=== PATIENT | male | born 1980 | race Caucasian/White ===

== ENCOUNTER 2016-12-18 20:28 | Inpatient (IN) | payer MEDICAID ==
[~2016-12-18] VITALS: Ht 182.9 cm; Wt 108.9 kg
[2016-12-18] MEDS ORDERED: SODIUM CHLORIDE 0.9% 1,000ML IVBOLUS ONE (21:00)
[2016-12-18] MEDS ORDERED: SODIUM CHLORIDE FLUSH 10ML SYR IVF ONE (21:00)
[2016-12-18] MEDS ORDERED: ONDANSETRON 2MG/ML, 2ML IVPush ONE (21:00)
[2016-12-18] MEDS ORDERED: MORPHINE SULFATE 4 MG/ML, 1ML IVPush PRN (21:00)
[2016-12-18] MEDS ORDERED: MORPHINE SULFATE 4 MG/ML, 1ML ONE (21:09)
[2016-12-18] MEDS ORDERED: ONDANSETRON 2MG/ML, 2ML ONE (21:09)
[2016-12-18] MEDS ORDERED: KETAMINE 10 MG/ML, 20ML IV ONE (21:30)
[2016-12-18] MEDS ORDERED: LORazepam 2 MG/ML, 1ML IVPush PRN (21:30)
[2016-12-18] MEDS ORDERED: KETAMINE 10 MG/ML, 20ML ONE ×2 (21:40→22:09)
[2016-12-18] MEDS ORDERED: OMNIPAQUE 350 MG/ML, 75ML BOTTLE ONE (21:46)
[2016-12-18 21:53] LABS: BLOOD UREA NITROGEN 7 mg/dL (7-18)
[2016-12-18] MEDS ORDERED: LIDOCAINE 1%, 20ML ONE (22:01)
[2016-12-18] MEDS ORDERED: LORazepam 2 MG/ML, 1ML ONE (22:36)
[2016-12-18] MEDS ORDERED: FENTANYL PF 100 MCG/2ML ONE (22:56)
[2016-12-18] MEDS ORDERED: hydrALAzine 20 MG/ML, 1ML IVPush PRN (23:30)
[2016-12-18] MEDS ORDERED: FENTANYL PF 100 MCG/2ML IV PRN (23:30)
[2016-12-18] MEDS ORDERED: ONDANSETRON ODT 4 MG PO PRN (23:30)
[2016-12-18] MEDS: ACETAMINOPHEN 500 MG TABLET PO SCH (23:30)
[2016-12-19] VITALS: BP 130/84
[2016-12-19] MEDS: OXYcodone IR 5MG TABLET PO PRN ×3 (00:43→20:37)
[2016-12-19] MEDS: KETOROLAC 30 MG/1 ML IVPush PRN ×4 (01:59→23:20)
[2016-12-19] MEDS: ENOXAPARIN 30 MG/0.3 ML SQ SCH ×3 (02:02→23:20)
[2016-12-19] MEDS: D5%-0.45NACL+KCL 20MEQ 1,000 ML IV SCH ×3 (02:08→23:20)
[2016-12-19] MEDS: ACETAMINOPHEN 500 MG TABLET PO SCH ×4 (05:30→23:27)
[2016-12-19 05:40] VITALS: BP 137/84
[2016-12-19 05:56] LABS: BLOOD UREA NITROGEN 7 mg/dL (7-18)
[2016-12-19 06:57] VITALS: BP 126/81
[2016-12-19 14:36] VITALS: BP 126/83
[2016-12-19 19:12] VITALS: BP 135/75
[2016-12-20 01:03] VITALS: BP 130/78
[2016-12-20] MEDS: ACETAMINOPHEN 500 MG TABLET PO SCH ×4 (05:30→23:21)
[2016-12-20] MEDS: KETOROLAC 30 MG/1 ML IVPush PRN ×3 (05:57→17:35)
[2016-12-20 06:48] VITALS: BP 137/81
[2016-12-20] MEDS: OXYcodone IR 5MG TABLET PO PRN ×2 (08:51→23:22)
[2016-12-20] MEDS: D5%-0.45NACL+KCL 20MEQ 1,000 ML IV SCH ×2 (09:29→21:41)
[2016-12-20] MEDS ORDERED: ACETAMINOPHEN 325 MG TABLET ONE (11:45)
[2016-12-20] MEDS: ENOXAPARIN 30 MG/0.3 ML SQ SCH ×2 (11:51→23:22)
[2016-12-20 12:09] VITALS: BP 133/84
[2016-12-20 19:11] VITALS: BP 127/79
[2016-12-21 01:34] VITALS: BP 126/79
[2016-12-21] MEDS: ACETAMINOPHEN 500 MG TABLET PO SCH ×4 (05:39→22:54)
[2016-12-21] MEDS: KETOROLAC 30 MG/1 ML IVPush PRN (06:19)
[2016-12-21] MEDS: D5%-0.45NACL+KCL 20MEQ 1,000 ML IV SCH ×2 (06:19→18:40)
[2016-12-21 08:15] VITALS: BP 138/76
[2016-12-21] MEDS: ENOXAPARIN 30 MG/0.3 ML SQ SCH ×2 (12:09→22:54)
[2016-12-21 14:00] VITALS: BP 142/76
[2016-12-21 20:51] VITALS: BP 121/69
[2016-12-22 00:26] VITALS: BP 137/79
[2016-12-22] MEDS: D5%-0.45NACL+KCL 20MEQ 1,000 ML IV SCH ×2 (04:01→17:34)
[2016-12-22] MEDS: ACETAMINOPHEN 500 MG TABLET PO SCH ×4 (05:17→23:40)
[2016-12-22 06:31] VITALS: BP 132/74
[2016-12-22] MEDS: ENOXAPARIN 30 MG/0.3 ML SQ SCH ×2 (11:20→23:40)
[2016-12-22 13:24] VITALS: BP 142/88
[2016-12-22 20:00] VITALS: BP 123/68
[2016-12-23 03:54] VITALS: BP 128/80
[2016-12-23] MEDS: D5%-0.45NACL+KCL 20MEQ 1,000 ML IV SCH (04:16)
[2016-12-23] MEDS: ACETAMINOPHEN 500 MG TABLET PO SCH ×2 (05:36→12:24)
[2016-12-23 07:44] VITALS: BP 137/77
[2016-12-23] MEDS: ENOXAPARIN 30 MG/0.3 ML SQ SCH (11:30)
== END 2016-12-23 15:11 | disposition home or self-care (01) | DRG 200 ==
LOC: ED 22:46 → EDIP 23:23 → 4WST 23:41
PROVIDERS: ADMIT Surgery; ATTEND Surgery
PROC: 0W9B30Z Drainage of Left Pleural Cavity with Drainage Device, Percutaneous Approach (ICD-10-PCS; principal; 2016-12-18)
PROC: 0WPBX0Z Removal of Drainage Device from Left Pleural Cavity, External Approach (ICD-10-PCS; 2016-12-23)
DX: S27.2XXA Traumatic hemopneumothorax, initial encounter (principal); S22.42XA Multiple fractures of ribs, left side, initial encounter for closed fracture; F17.210 Nicotine dependence, cigarettes, uncomplicated; Y93.89 Activity, other specified; Y92.89 Other specified places as the place of occurrence of the external cause; Y99.8 Other external cause status; V29.9XXA Motorcycle rider (driver) (passenger) injured in unspecified traffic accident, initial encounter
CPT/HCPCS: 32551; 36415; 71010; 71260; 80048; 82040; 85025; 96361; 96374; 96375; 99152; 99153; J1650; J1885; J2405; J3010; Q9967; J2060; J3480; J7030

== ENCOUNTER 2017-01-24 19:22 | Emergency (ER) | payer MEDICAID ==
[~2017-01-24] VITALS: Ht 182.9 cm; Wt 106.4 kg
[2017-01-24 19:24] VITALS: BP 124/75
[2017-01-24] MEDS ORDERED: BACITRACIN ZINC OINT 500U/GM, 0.9 GM ONE (19:52)
[2017-01-24] MEDS ORDERED: LIDOCAINE 1%, 20ML SQ ONE (20:00)
== END 2017-01-24 20:14 | disposition home or self-care (01) ==
LOC: ED 20:00
DX: S61.412A Laceration without foreign body of left hand, initial encounter (principal); J45.909 Unspecified asthma, uncomplicated; W45.8XXA Other foreign body or object entering through skin, initial encounter; Y93.89 Activity, other specified; Y92.89 Other specified places as the place of occurrence of the external cause; Y99.8 Other external cause status
CPT/HCPCS: 12001; 99283